=== PATIENT | female | born 1950 | race Caucasian/White ===

== ENCOUNTER 2019-07-28 01:06 | Inpatient (IN) | payer MEDICARE ==
[~2019-07-28] VITALS: Ht 154.9 cm
[2019-07-28] MEDS ORDERED: ASPIRIN CHEWABL81 MG PO (01:16)
[2019-07-28] MEDS ORDERED: ZANTAC LIQUID PO (01:20)
[2019-07-28] MEDS ORDERED: Carafate1 GM/10 ML PO (01:21)
[2019-07-28] MEDS ORDERED: PRAVACHOL80 M1 PO (01:22)
[2019-07-28] MEDS ORDERED: CATAPRES-TTS 30.3 MG T (01:24)
[2019-07-28 02:25] VITALS: BP 115/68
[2019-07-28] MEDS ORDERED: AMOXICILLI400 MG/51 PO (02:31)
--- NOTE | 2019-07-28 02:44 | NUR ---
DR MCMANUS NOTIFIED OF MEDICAL CONSULT & MED REQ READY FOR REVIEW. HE STATED TO PUT MEDICAL CONSULT UNDER DR RAHMAN.
[2019-07-28] MEDS ORDERED: SYSTANE BALANCE10 M1 OU (02:48)
--- NOTE | 2019-07-28 03:52 | NUR ---
ISMAELANGÉLICA a 69 year old F admitted via ambulance from the ADMITTING as a emergency 72 hr. hold admission. Arrived on unit at 0225AM. ALLERGIES: tetracycline, sulfa abx. Vital signs are: [id number] 115/68. CLIENT IS PINK SLIPPED AND SIGNED ALL the following forms with stated understanding: Authorization For The Release of Medical Information, Clothing List, , Consent and Release Forms/Receipt of Rights, Acknowledgement of Advance Directive Information, Behavioral Health Consent Form, and Informed Consent of Medications. Admitted under the services of Dr. YOGI SIMS,[facility]. A search was conducted and hazardous articles were removed. Client was oriented to the unit. CLIENT TEARY AND DENIES ANY PSYCHOLOGICAL DISORDER. CRIES WITHOUT TEARS ANY RULE NOT TO HER LIKING. EXAMPLE SHE REQUESTED DENTAL FLOSS. TOLD WE DON'T HAVE IT. SHE STARTED YELLING AND CRYING THAT I WAS GOING TO CAUSE HER CAVITIES BY NOT FLOSSING. EMOTIONAL SUPPORT, COPING SKILLS ALL REBUFFED. JEFF SALGUERO
--- NOTE | 2019-07-28 06:27 | NUR ---
CARAFATE NOT AVAILABLE PER PHARMACY
--- NOTE | 2019-07-28 06:37 | NUR ---
CONTRERAS IQBAL NOTIFIED VIA VOICE MAIL ON HER PHONE OF ADMISSION
[2019-07-28 07:02] LABS: ALBUMIN 2.9 gm/dl (3.1-4.5); BUN 12 mg/dl (7-24); CHLORIDE 109 mmol/L (98-107); CHOLESTEROL 202 mg/dL (<200); CREATININE 0.84 mg/dL (0.55-1.02); HDL CHOLESTEROL 56 mg/dl (40-60); LDL CHOLESTEROL 123 mg/dL (9-159); POTASSIUM 3.6 mmol/L (3.5-5.1); SGOT/AST 26 IU/L (3-35); SODIUM 142 mmol/L (136-145); TOTAL PROTEIN 6.1 gm/dL (6.4-8.2); TRIGLYCERIDES 113 mg/dl (<150); VLDL CHOLESTEROL 23 mg/dL (6-40)
[2019-07-28 07:12] LABS: ALKALINE PHOSPHATASE 77 U/L (45-117); SGPT/ALT 34 U/L (12-78)
[2019-07-28 07:47] VITALS: BP 133/67
[2019-07-28 08:05] LABS: VITAMIN D, 25-HYDROXY 31.6 ng/mL (30-100)
--- NOTE | 2019-07-28 09:44 | NUR ---
P-TEARFUL, ANXIOUS I-REDIRECTION WITH 1:1 THERAPEUTIC INTERVENTIONS AND PRESENT REALITY. EDUCATE AND ENCOURAGE MEDICATION COMPLIANCE R-PATIENT REQUESTED THAT THIS NURSE REVIEW MEDICATIONS. PATIENT TEARUL WHEN MEDICATIONS WERE EXPLAINED AND IF THEY WERE UNAVAILABLE. PATIENT STATING "I CAN'T SWALLOW. I NEED ALL FOUR OF MY MEDICATIONS". PATIENT SWALLOWED ASPIRIN WITHOUT DIFFICULTY WITH MILK AT PATIENT REQUEST. PATIENT AMBULATING ON UNIT WITH STEADY GAIT AND WITHOUT ASSISTIVE DEVICE. PATIENT REQUESTING ENSURE FOR BREAKFAST AND WITH MEALS. PATIENT MEDICATION COMPLIANT P-CONTINUE TO ENCOURAGE MEDICATION COMPLIANCE, CONTINUE TO PRESENT REALITY, ENCOURAGE GROUP THERAPY WHILE AWAKE
--- NOTE | 2019-07-28 11:10 | NUR ---
DR CHAPIN AND DR BRANDON ON UNIT TO SEE PATIENT PATIENT STATING AT THIS TIME THAT THERE IS DIFFICULTY WITH SWALLOWING AND "THAT IS THE REASON I AM HERE". WITH ORDER FOR SPEECH THERAPY CONSULT
--- NOTE | 2019-07-28 12:08 | NUR ---
PSYCHOSOCIAL HX COMPLETED THIS DATE.
--- NOTE | 2019-07-28 16:13 | NUR ---
Shift chart check completed.
[2019-07-28 19:51] VITALS: BP 138/84
--- NOTE | 2019-07-28 19:57 | NUR ---
SPOUSE BROUGHT IN CATAPRESS PRESCRIPTION FOR VERIFICATION OF DOSAGE, DR MARSH UPDATED AND MEDICATION CONTINUED PER ORDERS
--- NOTE | 2019-07-28 22:14 | NUR ---
P: POOR SELF AWARENESS, POOR HYGEINE, PREOCCUPIED WITH SWALLOWING FOODS OR SOLIDS,DISRUPTIVE WITH YELLING OUT "IT'S STUCK", WEEPY I: PT PROVIDED SHOWER, STAFF OBSERVED HER TO NOTE THAT SHE WAS NOT PROFORMING COMPLETE HYGEINE ON HERSELF, PT ASSISTED BY STAFF TO DO COMPLETE PERICARE, HAIR HYGEINE AND TO WASH HERSELF COMPLETELY. PT MEDICAITON IS SOLUTABS IN WHICH THIS NURSE DISOLVED IN SMALL AMOUNT OF WARM WATER, PT REQUESTED IT TO BE WITH PUDDING, UPON GIVING MEDICAITON TO PT SHE STATED " I JUST KNOW THIS WILL STICK IN MY THROAT I KNOW IT" REDIRECTED ENCOURAGED HER TO TAKE A DEEP BREATH SLOWLY TO DECREASE TEARS AND ANXIETY. EDUCATED HER THAT SHE THAT THERE ARE NO CHUNKS TO GET STUCK AND THAT PT HAD CONSUMED PUDDING FOR SNACK WITHOUT DIFFICULTY. TALKED WITH PT ABOUT WHAT FOOD SHE MISSES EATING FROM "BEFORE HER THROAT HURT HER" PT HAS COMPLETE DENIAL THAT SHE HAS EVER ENJOYED ANY FOODS, AND THAT SHE HAS EATEN MASH POTATOES FOR YEARS" R: PT MINIMALLY RESPONSIVE TO REDIRECTION FROM PREOCCUPATIONS, SHE WAS MEDICATION COMPLIANT WITH MUCH PROMTPING, PT TOLERATED ASSISTANCE WITH HYGEINE NEEDS FROM STAFF BUT WAS NOTED TO COMPLAIN ABOUT WATER TOO HOT, TOO COLD, DIDN'T WANT STAFF TO WASH CERTAIN PARTS OF HER BODY, BUT REFUSED TO WASH THEM HERSELF STATING SHE WASHED THEM YESTERDAY. PT NOTED TO BE MALODOROUS BY STAFF P: CONTINUE TO ASSIST PT TO PREFORM ADLS, DECREASE ANXIETY BY ATTEMPTING DIFFERENT METHODS OF CALMING TECHNIQUES AND REDIRECTION, MONITOR MEDICATION EFFECTIVENESS, 15 MIN CHECKS AND FALL PRECAUTIONS MAINTAINED. NO SI/HI NOTED PT CONTINUES TO BE OBSESSED ABOUT SWALLOWING AND FOOD CONSUMPTION.
--- NOTE | 2019-07-29 05:17 | NUR ---
PT SLEPT 6.5 HOURS
--- NOTE | 2019-07-29 05:20 | NUR ---
24 HR chart check completed.
[2019-07-29 07:55] VITALS: BP 111/71
--- NOTE | 2019-07-29 08:15 | NUR ---
Treatment Plan meeting was held with Dr. Bauer, RN, AT, COMPLIANCE REVIEWER-S and Egg Worker in attendance. Plan for discharge Monday. Pt. came to [facility] from [facility] and will return at discharge.
--- NOTE | 2019-07-29 08:15 | NUR ---
Treatment Plan meeting was held this a.m. with Dr. Bauer, RN, AT, DRESS CAP MAKER-S and Carpenter Cradle And Dolly. Plan for discharge at the end of the week. Pt. will return home at discharge.
--- NOTE | 2019-07-29 10:51 | NUR ---
Patient declined Occupational Therapy evaluation or to get out of bed. She reports that she was given a pill and now her chest is burning. Nurse informed and she agrees that patient currently has somatic complaints. OTR will attempt at a later date. Jaylin Montenegro OTR/Stacy
--- NOTE | 2019-07-29 11:03 | NUR ---
Notified Lizzy at [facility] of plans to discharge Monday/Monday. Faxed Clinical Updates. Orders received from Dr. Bauer For SNF at Discharge for PT/OT and Speech, Faxed Copy of order to [facility] [phone].
--- NOTE | 2019-07-29 11:41 | NUR ---
AM GROUP PT CHOSE NOT TO ATTEND MORNING GROUP THERAPY. PT WAS ENCOURAGED BUT STATED, "I AM JUST REALLY TIRED AND WANT TO SLEEP."
--- NOTE | 2019-07-29 12:15 | NUR ---
SPEECH PATHOLOGY Clinical swallowing evaluation completed as per orders. Patient reports dysphagia and inablility to eat well. Medical history includes anxiety, panic attacks, HTN, mitral valve prolapse and hiatal hernia. Patient is ordered a soft diet and thin liquid. She was assessed during lunchtime meal. She fed herself and consumed a grilled cheese sandwich, tomato soup and liquids by straw. Patient displayed no overt oral or pharyngeal swallowing difficulty. When asked if she was having any trouble during the meal, she stated "It's scary, I'm afraid I'll choke." Encouragment was provided and appeared to be helpful as she continued to eat. Education was provided to take her time and chew her food well. She verbalized understanding. Recommend she remain on present diet. No follow up treatment is recommended. Results and ray. were shared with her nurse who verbalized understanding. Refer to report in [place] for further information. Thank you for this referral. BRITANY BARLOW MSCCC-FOOD AND BEVERAGE OUTLETS MANAGER
--- NOTE | 2019-07-29 14:04 | NUR ---
IP jude per Tanja at [facility]. 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 Ref # [id number]
--- NOTE | 2019-07-29 15:10 | NUR ---
P: ISOLATIVE TO ROOM, DEPRESSED/ANXIOUS MOOD, PREOCCUPIED WITH CHOKING ON FOOD AT MEALS. I: ONE ON ONE FOR EMOTIONAL SUPPORT. ENCOURAGED TO COME OUT OF ROOM, INTERACT WITH STAFF AND OTHER PATIENTS, ATTEND AND PARTICIPATE IN GROUP SESSIONS. R: EFFECTIVE. ONE ON ONE EFFECTIVE, ABLE TO GET PATIENT TO ATTENT GROUP SESSION. MOOD IS DEPRESSED.ANXIOUS. DENIES ANY HALLUCINATIONS, DELUSIONS, HI/SI OR PAIN. NO RESPONSE TO INTERNAL STIMULI. PREOCCUPIED WITH SWALLOWING DURING MEALS AND TAKING MEDICATIONS. MEDICATION ARE CRUSHED AND IN PUDDING. PATIENT IS ALERT AND ORIENTED TO PERSON, PLACE, TIME AND SITUATION. ABLE TO VOICE NEEDS. VERBAL CUEING WITH ACTIVITIES OF DIALY LIVING. CONTINENT OF BOWEL AND BLADDER, SET UP FOR MEALS, INTAKES ARE GOOD WITH ADEQUATE FLUIDS. AMBULATORY WITH STEADY GAIT. MEDICATION COMPLAINT WITH EDUCATION, Q 15 MINUTE SAFETY CHECKS MAINTAINED. P: CONITNUE TO MONITOR MOOD, ANXIETY, DELUSIONS AND MEDICATION COMPLAINCE. PROVIDE ONE ON ONE FOR EMOTIONAL SUPPORT, MEDICATION EDUCATION. ENCOURAGE SOCIAL INTERACTION AND GROUP PARTICITPATION.
--- NOTE | 2019-07-29 15:10 | NUR ---
Occupational therapy orders received and OT evaluation completed in full on floor three. Patient is evaluation only secondary to independent functional status. Patient demonstrated within functional limits upper extremity strength and range of motion, independent dressing and grooming, and independent chair and toilet transfers. Patient was notified of OT discharge and was agreeable. Patient was encouraged to continue to independently participate in ADLs. At this time, OT recommends home with intermittent supervision. Patient complexity is low, [id number]. Thank you for the referral. Kriss Robert, OTR/L
--- NOTE | 2019-07-29 15:14 | NUR ---
Met with pt individually. Pt shared that she is at [facility] because pt is unable to swallow. Pt voiced that she believes it is anxiety causing this. Pt denies any significant stressors and any significant trauma. Pt appeared apprehensive as she spoke with noted hesitation before answering questions. Pt voiced that she is upset that she was told that she cannot be in bed all day. Pt was tearful as she spoke of this. Attempted to explore ideas that may be used as a tool for coping with pt's anxiety. Pt was pleasant but stated that she felt too tired and sleepy to focus at this time. Will plan on meeting with pt again at a different time.
--- NOTE | 2019-07-29 15:40 | NUR ---
PM GROUP PT ATTENDED AFTERNOON GROUP THERAPY WHEN HER NURSE INSISTED THAT SHE ATTEND. PT WAS AGITATED WHEN ENTERING THE DAYROOM STATING, "WHY DID THEY MAKE ME COME DOWN HERE? YOU AREN'T DOING ANYTHING ANYHOW!" PT WAS OFFERED MANY ACTIVITIES BUT REFUSED. PT STATED THAT SHE LIKED HGTV AND THE PROGRAM WAS PUT ON FOR HER. PT CURLED UP IN A COMFY CHAIR AND WENT TO SLEEP.
--- NOTE | 2019-07-29 16:49 | NUR ---
Shift chart check completed.
[2019-07-29 19:51] VITALS: BP 109/72
--- NOTE | 2019-07-29 21:47 | NUR ---
P: FLAT AFFECT/DEPRESSED, DIZZY WHEN CHANGE OF POSITIONS, FREQUENT MEDICAITON CHANGES FOR CARDIAC MEDS, HIGH FALL RISK, I: SPOKE WITH PT AT LENGTH ABOUT MOOD AND HER PERCEPTION OF WHAT IS GOING ON WITH HER HEALTH, PT REPORTED THAT SHE IS "NOT DEPRESSED" AND THAT SHE IS JUST FRUSTRATED WITH EVERYTHING CAUSING HER TO BE DIZZY. PT STATED THAT SHE IS SAD FREQUENTLY ABOUT THE LOSS OF HER SPOUSE AND THAT IT IS NEVER ENOUGH TIME WITH SOMEONE YOU LOVE. REPORTS SHE HAS DEALT WITH IT AND UNDERSTANDS SHE CAN'T CHANGE IT, BUT IT MAKES HER SAD REGUARDLESS OF WHAT SHE TELLS HERSELF. PT EDUCATED FLASH DRIER OPERATOR DON'T FALL, HOW TO CHANGE POSITIONS SLOWLY, AND MONITORED FOR CHANGES IN MENTAL STATUS R: PT STATES SHE FEELS BETTER THEN BEFORE AND IS GLAD THE HALLUCINATIONS ARE GONE. REPORTS SHE DOESN'T SEE ANYTHING ANYMORE EXCEPT WHAT IS SUPPOSED TO BE THERE. PT ATTEMPTS TO MUCH HOC HERSELF BUT NEEDS STAFF ASSIST DUE TO LOSS OF BALANCE AND FALL RISK P: CONTINUE TO OFFER SUPPORT, MONITOR BLOOD PRESSURE AND HEART RATE, MONITOR FOR HALLUCINATIONS OR DELUSIONS, PROMOTE SAFE ENVIRONMENT, CALL DON'T FALL. NO SI/HI OR DELUSIONS MEDICATION COMPLIANT
--- NOTE | 2019-07-29 22:03 | NUR ---
P: PARANOID ABOUT NOT BEING ABLE TO SWALLOW, WEEPY, I: GIVE VERBAL ENCOURAGEMENT THAT SHE IS CAPABLE TO SWALLOW, ENCOURAGE HER TO RECOGNIZE THAT SHE ATE PART OF A GRILLED CHEESE SANDWHICH AT [place] AND SHE DID FINE, EDUCATED HER THAT SPEECH THERAPY HAS NOTICED NO ISSUES WITH SWALLOWING, ALSO TALKED ABOUT PREVIOUS TESTS SHE HAS ENDURED PRIOR TO HER ADMISSION PER PT . ENCOURAGED MEDICATIONS, IN WHICH SHE WAS CONCERNED ABOUT BEING DIFFICULT TO SWALLOW,(MEDICATIONS ARE SOLU-TABS) R: PT NODDED WHEN SPOKEN TOO, SHE DID REPEAT THAT SHE WAS HAPPY SHE ATE GRILLED CHEESE, PT WAS INTERMITTENTLY WEEPY WITH CONVERSATIONS UNTIL REDIRECTED TO TAKE BREATHS TO CALM HERSELF DOWN. P: CONTINUE TO ENCOURAGE COPING SKILLS, PRESENT REALITY, ENSURE ADEQUETE NUTRITION. NO SI/HI NOTED. MEDICATION COMPLIANT, PT REQUIRES REMINDERS FOR HOC AND TO MAINTAIN MILIEU ROUTINE.
--- NOTE | 2019-07-30 05:52 | NUR ---
PT SLEPT 7 HOURS, 24 HR chart check completed.
--- NOTE | 2019-07-30 08:15 | NUR ---
Treatment Plan meeting was held with Dr. Bauer RN, AT and Business Mgr. Plan for discharge at the end of the week. Pt. will return home at discharge.
[2019-07-30 08:30] VITALS: BP 134/78
--- NOTE | 2019-07-30 11:55 | NUR ---
AM GROUP PT WAS PRESENT FOR MORNING GROUP THERAPY AND PARTICIPATED BY PAINTING AN ORNAMENT AND ATTEMPTING A WORDSEARCH. PT WAS WEEPY AND DISTRUGHT THE ENTIRE TIME, STATING THAT SHE DIDN'T KNOW WHAT SHE WAS DOING OR COULDN'T CONCENTRATE. PT ASKED TO STOP AND SIT IN A COMFY CHAIR. PT REQUESTED HGTV BUT DID NOT WATCH IT. PT HAD EYES CLOSED AND HEAD TURNED AWAY FROM THE TV. PT WOULD SPEAK WHEN SPOKEN TO BUT OTHERWISE MADE NO ATTEMPTS AT CONVERSATION. PT EXPRESSED NO DELUSIONAL IDEATIONS WHILE IN GROUP
--- NOTE | 2019-07-30 12:21 | NUR ---
DR. CARRION ON UNIT TO ASSESS PATIENT.
--- NOTE | 2019-07-30 15:39 | NUR ---
PM GROUP PT DID NOT ATTEND AFTERNOON GROUP THERAPY. PT WAS IN BED RESTING.
--- NOTE | 2019-07-30 16:00 | NUR ---
Shift chart check completed.
[2019-07-30 19:35] VITALS: BP 135/90
--- NOTE | 2019-07-30 19:45 | NUR ---
P: ANXIOUS MOOD, PREOCCUPIED REGARDING MEDICATIONS AND WORRIES ABOUT CHOKING ON FOOD. TEARFUL AT TIMES. FEARFUL DURING SHOWER. I: ONE ON ONE FOR EMOTIONAL SUPPORT, REDIRECT AND ENCOURAGE MEAL INTAKES. LESS ISOLATIVE, ENCOURAGING GROUP PARTICIPATION. R: PATIENT IS ALERT TO PERSON, PLACE, TIME AND SITUATION; ABLE TO VOICE NEEDS. MOOD IS ANXIOUS, TEARFUL. ISOLATIVE AT TIMES. DENIES ANY HALLUCINATIONS, DELUSIONS, HI/SI OR PAIN. 1 PERSON ASSIST WITH VERBAL CUEING DURING SHOWER TO ASSIST WITH WASHING SELF. AMBULATORY WITH STEADY GAIT. POOR INTAKES WITH ENCOURAGEMENT TO EAT AND DRINK. MEDICAITON COMPLAINT WITH EDUCATION /ENCORUAGEMENT TO BE COMPLIAINT. Q 15 MINUTE SAFETY CHECKS MAINTAINED. P: CONTINUE TO MONITOR MEAL INTAKE WITH DIFFICULTY AT MEALS, MEDICAITON COMPLIANCE AND MOOD. PROVIDE ONE ON ONE FOR EMOTIONAL SUPPORT, REDIRECTION NEEDED.
--- NOTE | 2019-07-30 20:39 | NUR ---
24 HR chart check completed.
--- NOTE | 2019-07-30 22:35 | NUR ---
P-ANXIOUS, TEARFUL, PREOCCUPIED WITH MEDICATIONS & HAS FEAR OF CHOKING I-ENCOURAGE VENTILATION OF FEELINGS & PROVIDE EMOTIONAL SUPPORT, ADMININSTER MEDS, MONITOR SLEEP R-PT IS ALERT & ORIENTED X 4. SAT IN THE DINING ROOM QUIETLY TO HERSELF. DEPRESSED MOOD WITH INCREASED ANXIETY & BEING TEARFUL DURING MEDICATION PASS. PT FEARFUL THAT SHE WILL CHOKE ON THEM DESPITE THAT THEY ARE CRUSHED & MIXED IN PUDDING. FREQUENT REASSURANCE PROVIDED. SWALLOWS WITHOUT DIFFICULTY & DRINKS MILK AFTER EACH BITE. ATE SNACK. INDEPENDENT WITH AMBULATION. P-CONTINUE TO MONITOR & PROVIDE PHYSICAL ASSISTANCE & EMOTIONAL SUPPORT NEEDED.
--- NOTE | 2019-07-31 05:38 | NUR ---
PT HAS SLEPT PAST 2214
[2019-07-31 07:53] VITALS: BP 130/69
--- NOTE | 2019-07-31 08:15 | NUR ---
Treatment Plan meeting was held this a.m. with Dr. Bauer RN, AT and General Milling Superintendent in attendance. Plan for discharge Monday. Pt. will return home at discharge with family to assist with Care.
--- NOTE | 2019-07-31 12:44 | NUR ---
AM GROUP NO AM GROUP DUE TO NEW PT ASSESSMENTS
--- NOTE | 2019-07-31 14:55 | NUR ---
P: ISOLATIVE/WITHDRAWN; TEARFUL, CRYING WITH INCREASED ANXIETY WHEN TAKING MEDICATIONS. I: ONE ON ONE FOR EMOTIONAL SUPPORT, ENCOURAGEMENT TO SOCIALIZE WITH STAFF AND OTHER PATIENTS. PARTICIPATE IN GROUP SESSION. ENCOURAGED DEEP BREATHING WITH BECOMING ANXIOUS. R: EFFECTIVE. PATIENT ATTENDING GROUP SESSION, BUT DID NOT PARTICIPATE. PATIENT TAKING MEDICAITON WITH MUCH ENCOURAGEMENT. PATIENT SITTING IN DINING ROOM SLEEPING WITH NO DISTRESS NOTED. PATIENT IS ALERT AND OREINT TO PERSON, PLACE, TIME AND SITUATION; ABLE TO VOICE NEEDS. MEDICATION COMPLIANT WITH EDUCATION. Q 15 MINUTE SAFETY CHECKS MAINTAINED. 1 PERSON ASSIST-VERBAL CUEING FOR ACTIVITIES OF DAILY LIVING, CONTINENT OF BOWEL AND BLADDER, SET UP FOR MEALS, INTAKES ARE GOOD WITH ADEQUATE FLUID. AMBULATORY WITH STEADY GAIT. P: CONTINUE TO MONITOR MOOD, GROUP PARTICIPATION, MEDICATION COMPLIANT AND MEAL INTAKES. PROVIDE ONE ON ONE, REDIRECTION, ENCOURAGE SOCIAL INTERACTIONS WITH STAFF AND OTHER PATIENTS AND USE OF COPING SKILLS WHEN ANXIOUS.
--- NOTE | 2019-07-31 15:37 | NUR ---
PM GROUP PT WAS PRESENT FOR AFTERNOON GROUP THERAPY AND REFUSED ANY ACTIVITY OFFERED. PT SAT IN A COMFY CHAIR WITH HER EYES CLOSED FOR MOST OF GROUP
--- NOTE | 2019-07-31 19:12 | NUR ---
SPOUSE IN TO VISIT, ONE ON ONE WITH PATIENT AND SPOUSE ON COPING SKILLS, GOAL SETTING, MEDICATION COMPLAINCE AND ACTIVITIES OF DAILY LIVING. PATIENT SELF AWARE, ACCEPTING TO ONE ON ONE. PATIENT CONTINUES TO BE ANXIOUS AND WORRY ON TAKING MEDICATIONS AND EATING AT MEALS.
[2019-07-31 19:45] VITALS: BP 138/87
--- NOTE | 2019-08-01 01:49 | NUR ---
P-HOPELESS/HELPLESS. POOR UNDERSTANDING OF ILLNESS, ANXIOUS I--1:1 WITH LITTLE FROM CLIENT. ENCOURAGED HER TO BELIEVE IN HERSELF AND HELP US TO HELP HER. DISCUSSED HUNGER PAINS, NUTRITION AND MEDICATION. TEARY, ANXIOUS FEARFUL LOOK ON HER FACE R--OH MY BELLY HURTS. NO IT IS NOT HUNGER PAINS. I JUST CAN'T TAKE PILLS UNLESS THEY ARE CRUSHED INTO A POWER IN PUDDING AND CAN I HAVE MILK TO PROTECT MY THROAT AND STOMACH FROM BLEEDING P--CONTINUE EMOTIONAL SUPPORT. MONITOR FOR CHANGES IN BEHAVIOR/MOOD
--- NOTE | 2019-08-01 04:46 | NUR ---
24 HR chart check completed.
--- NOTE | 2019-08-01 06:37 | NUR ---
SLEPT 8 HOURS INTERUPTED.
[2019-08-01 07:49] VITALS: BP 153/73
--- NOTE | 2019-08-01 08:15 | NUR ---
Treatment Plan meeting was held with Dr. Bauer, RN, AT, GLOBE CHANGER-S and Hose Seamer in attendance. Plan for discharge Monday. Pt. will return Home with Family.
--- NOTE | 2019-08-01 11:41 | NUR ---
AM GROUP NO AM GROUP WAS CONDUCTED DUE TO NURSING STUDENTS BEING PRESENT. PT DID NOT ATTEND, PT WAS IN BED RESTING
--- NOTE | 2019-08-01 15:44 | NUR ---
PM GROUP/BINGO PT ATTENDED AND PARTICIPATED IN MANY ROUNDS OF BINGO. PT EXPRESSED NO PARANOID DELUSIONS WHILE IN GROUP. PT WAS FOCUSED ON THE GAMES.
--- NOTE | 2019-08-01 18:01 | NUR ---
PT HAS BEEN PLEASANT AND COOPERATIVE T/O SHIFT. PT REMAINS PREOCCUPIED WITH MEDICATIONS STATING "I NEED IT IN [place] PUDDING WITH MILK TO DRINK" PT DISPLAYED NO ANXIOUS BEHAVIOR, CAME OUT OF ROOM FOR MEALS, INTERACTED WITH THIS NURSE, SMILING, STATING SHE FEELS "PRETTY GOOD". PT DOES STATE THAT SHE FEELS TIRED TODAY AND HAS BEEN NAPPING INTERMITTENTLY T/O SHIFT. WILL CONTINUE TO MONITOR PT AND PROVIDE REDIRECTION AND EMOTIONAL SUPPORT APPROPRIATE. Q15 MIN MONITORING PER POLICY.
[2019-08-01 19:15] VITALS: BP 136/56
--- NOTE | 2019-08-01 22:21 | NUR ---
CLIENT HAS SHOWED IMENSE IMPROVEMENT TONIGHT. NO TEARS ABOUT MEDICATIONS OR EATING. SHE ALSO SHOWERED AND WASHED HER HAIR WITHOUT ANY ASSISTANCE. BRAVOS AND PATS ON THE BACK GIVEN. SHE SAYS IT DID MAKE HER FEEL GOOD.
--- NOTE | 2019-08-02 03:11 | NUR ---
24 HR chart check completed.
[2019-08-02 08:00] VITALS: BP 118/89
--- NOTE | 2019-08-02 08:15 | NUR ---
Treatment Plan meeting was held with Dr. Bauer, RN, AT, FUNCTIONAL ARCHITECT-S and Poultry Husbandry Teacher in attendance. Plan for discharge today with return home with family. Follow up appointments have been scheduled. Family to transport patient via personal Car.
--- NOTE | 2019-08-02 08:15 | NUR ---
DR CARRION ON UNIT TO SEE PATIENT
[2019-08-02] MEDS ORDERED: RISPERIDONE M-TA1 MG BC (08:32)
[2019-08-02] MEDS ORDERED: MIRTAZAPINE15 M1 PO (08:32)
--- NOTE | 2019-08-02 09:56 | NUR ---
PHYSICAL THERAPY Bruna completed pt low complexity level [id number] recomend discharge to home with family. Pt is independent overall no skilled needs at this time no cocnerns per staff or pt d/c PT at this time Lucila Alfredo PT
--- NOTE | 2019-08-02 11:18 | NUR ---
P-EPISODES OF TEARFULNESS I-REDIRECTION WITH 1:1 THERAPEUTIC INTERVENTIONS AND PRESENT REALITY. EDUCATE AND ENCOURAGE MEDICATION COMPLIANCE R-PATIENT TEARUL WHEN TAKING MEDICATIONS THIS AM. PATIENT STATING "IT'S HARD TO SWALLOW". PATIENT MEDICATION COMPLIANT. PATIENT AMBULATING ON UNIT WITH STEADY GAIT AND WITHOUT ASSISTIVE DEVICE. PATIENT DRINKING FLUIDS AND PROVIDED NOURISHMENT WITHOUT DIFFICULTY. P-CONTINUE TO ENCOURAGE MEDICATION COMPLIANCE, CONTINUE TO PRESENT REALITY, ENCOURAGE GROUP THERAPY WHILE AWAKE
--- NOTE | 2019-08-02 11:40 | NUR ---
AM GROUP/EXERCISE AND BRAIN GAMES PT ATTENDED MORNING GROUP THERAPY AND PARTICIPATED MINIMALLY. PT IS SET TO BE DISCHARGED FROM THE UNIT SOME TIME TODAY
--- NOTE | 2019-08-02 15:38 | NUR ---
PM GROUP/LEISURE INTERESTS PT WAS PRESENT FOR AFTERNOON GROUP THERAPY BUT DID NOT PARTICIPATE. PT WAS CURLED UP IN A COMFY CHAIR AT THE BACK OF THE ROOM SLEEPING
--- NOTE | 2019-08-02 16:45 | NUR ---
PATIENT DISCHARGED FROM UNIT VIA WHEELCHAIR WITH . NURSING STAFF X 2 ESCORTED PATIENT FROM UNIT. PATIENT AND VERBALIZED UNDERSTANDING OF DISHARGE INSTRUCTIONS. PLANS TO STOP AT PATIENT'S PHARMACY BEFORE RETURNING HOME. PATIENT TRANSPORTED HOME VIA PRIVATE VEHICLE. PATIENTS BELONGINGS AND PHARMACY INVENTORY RETURNED WITH PATIENT AT DISCHARGE. MEDICATIONS RETURNED TO PHARMACY. PATIENT RECEIVED MEDICATIONS DUE PRIOR TO DISCHARGE. PATIENT STABLE
== END 2019-08-02 16:45 | disposition home or self-care (01) | DRG 885 ==
LOC: 3N 01:06
PROVIDERS: ADMIT Psychiatry & Neurology Psychiatry
DX: F33.3 Major depressive disorder, recurrent, severe with psychotic symptoms (principal); F23 Brief psychotic disorder; F41.0 Panic disorder [episodic paroxysmal anxiety]; K29.70 Gastritis, unspecified, without bleeding; K44.9 Diaphragmatic hernia without obstruction or gangrene; I10 Essential (primary) hypertension; E78.5 Hyperlipidemia, unspecified; Z98.891 History of uterine scar from previous surgery; Z82.49 Family history of ischemic heart disease and other diseases of the circulatory system; Z81.8 Family history of other mental and behavioral disorders; Z88.2 Allergy status to sulfonamides; Z88.1 Allergy status to other antibiotic agents; Z79.82 Long term (current) use of aspirin